=== PATIENT | male | born 1960 | race Caucasian/White ===

== ENCOUNTER → 2024-11-10 12:05 | Outpatient (REF) | payer MEDICARE, BC, SELFPAY | LOC: MRI 3T 12:05 | PROVIDERS: ATTENDING PHYSICIAN Urology; FAMILY PHYSICIAN Family Medicine | DX: R97.20 Elevated prostate specific antigen [PSA] (principal) | CPT/HCPCS: 72197; A9575 ==

== ENCOUNTER → 2025-01-09 13:40 | Outpatient (REF) | payer MEDICARE, BC, SELFPAY | LOC: CLAB 13:40 | PROVIDERS: ATTENDING PHYSICIAN Urology | DX: R97.20 Elevated prostate specific antigen [PSA] (principal) | CPT/HCPCS: 88305 ==